=== PATIENT | female | born 1985 | race Two or more races ===

== ENCOUNTER → 2025-05-15 | Outpatient (CLI) | payer BC, MEDICAID, SELFPAY ==
--- NOTE | 2025-05-15 09:15 | XR_ITS ---
Examination: Abdomen sonogram, complete Date and time of exam: May 15, 2025, 0930 hours INDICATIONS: Elevated liver function test on laboratory examination performed 1 month ago. Technique: Multiple real-time grayscale transabdominal sonographic images of the abdomen have been obtained. Findings: Normal gallbladder. Normal common bile duct 0.4 cm Pancreatic head 2.0 cm Aorta not enlarged. Liver 13.5 cm fatty infiltration no liver lesions. Normal hepatopetal portal venous flow Patent IVC Left kidney 10.9 cm renal cortex 2.0 cm Left kidney 11.4 cm renal cortex 2.0 cm No hydronephrosis Spleen 10.1 cm IMPRESSION: Normal gallbladder Normal common bile duct
== END | disposition home or self-care (01) ==
PROVIDERS: PCP Nurse Practitioner Primary Care; Referring Provider Nurse Practitioner Primary Care; Visit Provider Nurse Practitioner Primary Care
DX: R74.8 Abnormal levels of other serum enzymes (principal)
CPT/HCPCS: 76700